=== PATIENT | female | born 1945 | race Caucasian/White ===

== ENCOUNTER 2017-12-04 09:00 | Outpatient (CLI) | payer MEDICARE, BC ==
[2017-12-04] MEDS ORDERED: Gadobenate Dimeglumine 529 MG/1 ML (20ML VIAL) ONE (10:51)
--- NOTE | 2017-12-04 12:51 | MRI ---
BRAIN MRI WITH AND WITHOUT CONTRAST: CLINICAL HISTORY: A 72-year-old female. Memory loss. FINDINGS: There is mild parenchymal volume loss with compensatory dilatation of the ventricular system. There is mild periventricular T2 and FLAIR hyperintensity. The degree of patient motion degrades image courtney lity and does limit the assessment, although there is no definite pathologic intraaxial enhancement i dentified. Skull base flow voids are not reliably assessed. There is no significant intracranial or hemorrhagic susceptibility visualized. No acute territorial infarction present. IMPRESSION: 1. Limited exam by patient motion. 2. No definite acute intracranial abnormalities. 3. There is mild parenchymal volume loss with compensatory dilatation of the ventricular system. 4. Mild degree of periventricular T2 and FLAIR hyperintensity could either relate to transependymal cerebrospinal fluid migration versus mild gliosis from ischemic disease. 5. Recommend clinical correlation in this regard and, as necessary, imaging follow-up analysis may b e obtained. POS: [facility]
== END 2017-12-04 09:01 | disposition home or self-care (01) ==
LOC: MRI 09:00
PROVIDERS: ATTEND Neurological Surgery
DX: Z01.818 Encounter for other preprocedural examination (principal); R41.3 Other amnesia; R94.02 Abnormal brain scan; G93.9 Disorder of brain, unspecified
CPT/HCPCS: 70553; 82565; A9579